=== PATIENT | female | born 1970 | race Caucasian/White ===

== ENCOUNTER 2019-04-24 22:55 | Emergency (ER) | payer BC ==
[~2019-04-24] VITALS: Ht 160 cm; Wt 88.5 kg
[~2019-04-24 22:55] MED LIST: LEVONORGESTREL1 EAC2 PO; LEXAPRO 10 MG T10 M1 PO
[2019-04-24 23:05] VITALS: BP 192/74
== END 2019-04-24 23:28 | disposition home or self-care (01) ==
LOC: M.ERS 22:55
DX: T83.39XA Other mechanical complication of intrauterine contraceptive device, initial encounter (principal); Y84.8 Other medical procedures as the cause of abnormal reaction of the patient, or of later complication, without mention of misadventure at the time of the procedure; Y92.89 Other specified places as the place of occurrence of the external cause